=== PATIENT | female | born 1985 ===

== ENCOUNTER 2018-08-25 17:02 | Emergency (ER) | payer OTHER ==
[~2018-08-25] VITALS: Ht 149.9 cm; Wt 52.2 kg
[~2018-08-25 17:02] MED LIST: ATABEX DHA 200200 MG PO; CIPRO500 MG PO; IMODIUM A-D2 MG PO; LEVSIN/SL0.125 MG SL; PEPCID20 MG PO; PROFERRIN12 MG PO; PROTONIX40 MG PO; PROVENTIL0.5 ML/2.5 IH; TRAMADOL HCL50 MG PO; TRIPLE ANTIBIOT15 GM TP; VALTREX1000 MG PO; ZEGERID 20 MG C1 CAP PO; ZYNCOF 20-400120 ML PO; ZYRTEC10 M3 PO
== END 2018-08-25 21:10 | disposition home or self-care (01) ==
LOC: ER 17:02
DX: J09.X2 Influenza due to identified novel influenza A virus with other respiratory manifestations (principal); B34.9 Viral infection, unspecified

== ENCOUNTER 2018-12-01 10:43 | Emergency (ER) | payer OTHER ==
[~2018-12-01] VITALS: Ht 149.9 cm; Wt 51.3 kg
== END 2018-12-01 15:30 | disposition home or self-care (01) ==
LOC: ER 10:43
DX: L27.1 Localized skin eruption due to drugs and medicaments taken internally (principal); T50.995A Adverse effect of other drugs, medicaments and biological substances, initial encounter

== ENCOUNTER 2019-05-29 12:42 | Emergency (ER) | payer OTHER ==
[~2019-05-29] VITALS: Ht 149.9 cm; Wt 49.9 kg
[2019-05-29] MEDS ORDERED: ZEGERID 40 MG1 EACH (12:58)
== END 2019-05-29 17:25 | disposition home or self-care (01) ==
LOC: ER 12:42
DX: J06.9 Acute upper respiratory infection, unspecified (principal); R11.10 Vomiting, unspecified